=== PATIENT | male | born 1945 | race Caucasian/White ===

== ENCOUNTER 2016-12-25 04:42 | Emergency (ER) | payer OTHER ==
[2016-12-25 04:55] VITALS: BP 162/96; TEMP 97.8; BMI 36.6
[2016-12-25] MEDS ORDERED: LASIX IVP STA (05:00)
[2016-12-25 05:10] LABS: BASOPHILS % (AUTO) 0.5 % (0.0-3.0); EOSINOPHILS # (AUTO) 0.2 K/ul (0.0-0.7); EOSINOPHILS % (AUTO) 2.3 % (0.0-7.0); HEMOGLOBIN 12.8 g/dl (14.0-18.0); IMMATURE GRANULOCYTE % (AUTO) 0.3 % (0.0-5.0); LYMPHOCYTES # (AUTO) 0.8 K/uL (0.60-3.4); LYMPHOCYTES % (AUTO) 11.2 (10.0-50.0); MEAN CORPUSCULAR HEMOGLOBIN 30.2 pg (27.0-31.0); MEAN CORPUSCULAR HGB CONC 33.7 (31.8-35.4); MEAN CORPUSCULAR VOLUME 89.6 fl (80.0-94.0); MONOCYTES # (AUTO) 0.6 K/uL (0.4-2.0); NEUTROPHILS # (AUTO) 5.8 K/ul (2.0-6.9); NEUTROPHILS % (AUTO) 77.7; PLATELET COUNT 178 10^3/uL (140-440); RED BLOOD COUNT 4.24 10^6/ul (4.70-6.10); WHITE BLOOD COUNT 7.48 K/ul (4.2-10.2)
[2016-12-25 05:29] LABS: PROTHROMBIN TIME 19.1 SEC (9.3-11.0)
[2016-12-25 05:30] LABS: ALBUMIN 3.6 g/dL (3.4-5.0); ALBUMIN/GLOBULIN RATIO 0.95; ANION GAP 15.3; BILIRUBIN,TOTAL 0.49 mg/dL (0.00-1.20); BUN/CREATININE RATIO 19.56; CALCIUM 9.8 mg/dL (8.2-10.2); CREATININE 1.38 mg/dL (0.60-1.10); POTASSIUM 4.3 mmol/L (3.5-5.1); TOTAL PROTEIN 7.4 g/dL (5.8-8.1)
[2016-12-25 06:01] LABS: TROPONIN I 0.016 ng/ml (0.0000-0.4000)
--- NOTE | 2016-12-25 06:01 | DI ---
EXAM: Two-view chest HISTORY: Shortness of breath COMPARISON: None. FINDINGS: The heart is enlarged. Atherosclerotic changes are seen involving the aortic arch. There is mild blunting of the left lateral costophrenic angle with likely mild left basilar scarring. IMPRESSION: Mild cardiomegaly. ASVD. Minimal blunting left lateral costophrenic angle with left basilar scarring.. Hiatal hernia.
[2016-12-25 06:06] LABS: CREATINE KINASE MB 5.1 ng/ml (0.0-3.6)
--- NOTE | 2016-12-25 06:07 | ED.PDOC ---
General ED Provider: Dr. JARRETT LINCOLN-ER Chief Complaint: Shortness of Air Stated Complaint: i have chf and its "acting up"--[place] sob--has been eating more salty stuff--denies cp--"i do this from time to time" Time Seen by Physician: 04:45 Mode of Arrival: Walk-In Information Source: Patient, Family Exam Limitations: No limitations Nursing and Triage Documentation Reviewed and Agree: Yes Respiratory Complaint Exam - Shortness of Air Complaint/Exam Onset/Duration: a few hours Symptoms Are: Still present Timing: Constant Initial Severity: Mild Current Severity: Mild Character: Reports: Dyspnea at rest, Dyspnea on exertion Aggravating: Reports: None Alleviating: Reports: None Associated Signs and Symptoms: Reports: Cough, Wheezing, Edema, Labored breathing. Denies: Chest pain with cough, Chest pain, Fever, Chills, Diaphoresis, Nasal congestion, Dizziness, Calf pain, Calf swelling, Rapid breathing, Decreased intake Related History: Reports: Similar episode History of Healthcare-Acquired Pneumonia: No Cardiac Risk Factors: Reports: CHF Home Oxygen Use: No Recent Stress Test: No Recent Echo/LV Function: No Respiratory Distress: Mild Stridor Present: No Tracheal Deviation: No Subcutaneous Emphysema: No Accessory Muscle Use: No Retractions: Not Present Diminished Breath Sounds: No Prolonged Expiratory Phase: No Unable to Speak Full Sentences: No Fatigue: No Leg Swelling: Yes Chuck's Sign Present: No Grunting Respirations: No Kussmaul Respirations: No Differential Diagnoses: CHF, Pulmonary Edema Review of Systems - Review Of Systems Constitutional: Reports: No symptoms Eyes: Reports: No symptoms Ears, Nose, Mouth, Throat: Reports: No symptoms Respiratory: Reports: Cough, Short of air, Wheezing Cardiac: Reports: No symptoms GI: Reports: No symptoms : Reports: No symptoms Musculoskeletal: Reports: No symptoms Skin: Reports: No symptoms Neurological: Reports: No symptoms Endocrine: Reports: No symptoms Hematologic/Lymphatic: Reports: No symptoms All Other Systems: Reviewed and Negative Past Medical History - Past Medical History Previously Healthy: Yes Endocrine: Reports: Unknown Cardiovascular: Reports: Hypertension, CHF Respiratory: Reports: Unknown Hematological: Reports: Unknown Gastrointestinal: Reports: Unknown Genitourinary: Reports: Unknown Neuro/Psych: Reports: Unknown Musculoskeletal: Reports: Unknown Cancer: Reports: Unknown - Surgical History General Surgical History: Reports: Pacemaker - Family History Family History: Reports: Unknown - Social History Smoking Status: Former smoker Hx Substance Use: No Alcohol Screening: None Lives: With family - Immunizations Tetanus Shot up to Date: Yes Physical Exam - Physical Exam Appearance: Well-appearing, No pain distress, Well-nourished Eyes: MARCY, EOMI, Conjunctiva clear ENT: Ears normal, Nose normal, Oropharynx normal Neck: Supple Respiratory: Crackles Cardiovascular: RRR GI/: Soft, Nontender, No masses, Bowel sounds normal, No Organomegaly Musculoskeletal: Normal strength, ROM intact, No edema, No calf tenderness Skin: Warm, Dry, Normal color Neurological: Sensation intact, Motor intact, Reflexes intact, Cranial nerves intact, Alert, Oriented Psychiatric: Affect appropriate, Mood appropriate Interpretation - Radiology Interpretation Radiology Interpretation By: Radiologist Radiology Results: Positive Exam Interpreted: CXR ("cardiomegaly with left minimal blunting") Re-Evaluation - Re-Evaluation Time of Re-Evaluation: 06:15 Status: Improved (no cp or dyspnea "i can lay back now") Vital Signs Stable: Yes Pain Level: o Appearance: NAD Lungs: Clear Skin: Warm and Dry Neuro: Alert and Oriented X3 CV: RRR Critical Care Note - Critical Care Note Total Time (mins): 0 Course - Course Hematology/Chemistry: 12/25/16 05:05 12/25/16 05:05 Orders, Labs, Meds: Lab Review 12/25/16 12/25/16 12/25/16 05:05 05:05 05:05 WBC 7.48 RBC 4.24 L Hgb 12.8 L Hct 38.0 L MCV 89.6 MCH 30.2 MCHC 33.7 RDW Coeff of Roman 12.9 Plt Count 178 Immature Gran % (Auto) 0.3 Neut % (Auto) 77.7 Lymph % (Auto) 11.2 [place] % (Auto) 8.0 Eos % (Auto) 2.3 Baso % (Auto) 0.5 Immature Gran # (Auto) 0.0 Neut # 5.8 Lymph # 0.8 [place] # 0.6 Eos # 0.2 Baso # 0.0 PT 19.1 H INR 1.91 Sodium 142 Potassium 4.3 Chloride 101 Carbon Dioxide 30 Anion Gap 15.3 BUN 27 H Creatinine 1.38 H Estimated GFR (MDRD) 51.00 BUN/Creatinine Ratio 19.56 Glucose 167 H Calcium 9.8 Total Bilirubin 0.49 AST 18 ALT 15 Alkaline Phosphatase 66 Total Creatine Kinase CK-MB (CK-2) CK-MB (CK-2) % Troponin I B-Natriuretic Peptide Total Protein 7.4 Albumin 3.6 Globulin 3.8 Albumin/Globulin Ratio 0.95 12/25/16 12/25/16 05:05 05:05 WBC RBC Hgb Hct MCV MCH MCHC RDW Coeff of Roman Plt Count Immature Gran % (Auto) Neut % (Auto) Lymph % (Auto) [place] % (Auto) Eos % (Auto) Baso % (Auto) Immature Gran # (Auto) Neut # Lymph # [place] # Eos # Baso # PT INR Sodium Potassium Chloride Carbon Dioxide Anion Gap BUN Creatinine Estimated GFR (MDRD) BUN/Creatinine Ratio Glucose Calcium Total Bilirubin AST ALT Alkaline Phosphatase Total Creatine Kinase 207 CK-MB (CK-2) 5.1 H* CK-MB (CK-2) % 2.89108 Troponin I 0.0160 B-Natriuretic Peptide 246 H Total Protein Albumin Globulin Albumin/Globulin Ratio Orders Category Date Time Status EKG-(ED ONLY) Stat CARDIO 12/25/16 04:59 Ordered Cylinder Inspector [ED INSULATION MACHINE OPERATOR APPLIED] .ONCE EMERGENCY 12/25/16 05:00 Active IV [ED IV/MEDIPORT/POWERPORT] .ONCE EMERGENCY 12/25/16 04:59 Active BNP [B-TYPE NATRIURETIC PEPTIDE] Stat LAB 12/25/16 05:05 Completed CBC W/ AUTO DIFF Stat LAB 12/25/16 05:05 Completed COMPREHENSIVE METABOLIC PANEL Stat LAB 12/25/16 05:05 Completed CREATINE KINASE Stat LAB 12/25/16 05:05 Completed PT WITH INR Stat LAB 12/25/16 05:05 Completed TROPONIN I Stat LAB 12/25/16 05:05 Completed 0.9 % Sodium Chloride [Saline Flush] MEDS 12/25/16 04:59 Ordered 1 syr IVF PRN PRN Furosemide [Lasix] MEDS 12/25/16 05:00 Discontinued 80 mg IVP ONCE STA CXR [CHEST, 2 VIEWS PA & LAT] Stat RADS 12/25/16 05:00 Completed Medications Generic Name Dose Route Start Last Admin Trade Name Freq PRN Reason Stop Dose Admin Sodium Chloride 1 syr 12/25/16 04:59 12/25/16 05:25 Saline Flush IVF 1 syr PRN PRN Administration To flush IV Discontinued Medications Generic Name Dose Route Start Last Admin Trade Name Chelle PRN Reason Stop Dose Admin Furosemide 80 mg 12/25/16 05:00 12/25/16 05:25 Lasix IVP 12/25/16 05:01 80 mg ONCE STA Administration Vital Signs: Temp Pulse Resp BP Pulse Ox 12/25/16 04:44 97.8 F 91 H 20 162/96 H 88 L Departure - Departure Time of Disposition: 06:15 Disposition: HOME SELF-CARE Discharge Problem: CHF (congestive heart failure) Qualifiers: Congestive heart failure type: unspecified congestive heart failure type Congestive heart failure chronicity: acute on chronic Qualified Code(s): I50.9 - Heart failure, unspecified Instructions: Heart Failure (ED), Low-Sodium Diet (ED) Condition: Good Pt referred to PMD for follow-up: Yes Additional Instructions: take meds as prescribed--careful with salt intake at [facility] [place] --f/u with pcp upon return Allergies/Adverse Reactions: Allergies guaifenesin [From Robitussin] Adverse Reaction (Verified 12/25/16 04:55) Difficulty Swallowing Home Medications: Ambulatory Orders Aspirin [Aspirin EC] 81 mg PO DAILYWM 12/25/16 Carvedilol [Coreg] 25 mg PO BID 12/25/16 Furosemide [Lasix Tab] 40 mg PO QPM 12/25/16 Furosemide [Lasix Tab] 80 mg PO QAM 12/25/16 Glipizide 5 mg PO BIDAC 12/25/16 Lisinopril [Zestril] 5 mg PO DAILY 12/25/16 Loratadine [Allergy] 10 mg PO DAILY 12/25/16 Metformin HCl [Glucophage] 1,000 mg PO BID BREAKFAST&LUNCH 12/25/16 Simvastatin 40 mg PO DAILY 12/25/16 Warfarin Sodium [Coumadin] 5 mg PO DAILY 12/25/16 Disposition Discussed With: Patient, Family
[2016-12-26 00:01] VITALS: BMI 36.5
== END 2016-12-25 06:25 | disposition home or self-care (01) ==
LOC: ED 04:42
DX: I50.9 Heart failure, unspecified (principal); I10 Essential (primary) hypertension; Z95.0 Presence of cardiac pacemaker; Z79.01 Long term (current) use of anticoagulants; Z79.899 Other long term (current) drug therapy
CPT/HCPCS: 36415; 80053; 82550; 82553; 83880; 84484; 85025; 85610; 93005; 93010; 96374; 99284

== ENCOUNTER 2016-12-25 20:50 | Inpatient (IN) ==
[2016-12-25] MEDS ORDERED: DUONEB NEB STA (21:12)
[2016-12-25] MEDS ORDERED: SOLU-MEDROL 125 MG IVP STA (21:13)
[2016-12-25 21:33] LABS: ABG PCO2 49.4 mmHg (35-45); ABG PH 7.418 (7.35-7.45)
[2016-12-25 21:34] LABS: ABG BASE EXCESS 7 (-2.0-2.0); ABG HCO3 31.9 (22.0-26.0); ABG TCO2 33 (22.0-28.0)
[2016-12-25 21:46] LABS: BASOPHILS % (AUTO) 0.5 % (0.0-3.0); EOSINOPHILS # (AUTO) 0.1 K/ul (0.0-0.7); EOSINOPHILS % (AUTO) 2.3 % (0.0-7.0); HEMATOCRIT 35.3 % (42.0-52.0); HEMOGLOBIN 11.8 g/dl (14.0-18.0); IMMATURE GRANULOCYTE % (AUTO) 0.2 % (0.0-5.0); LYMPHOCYTES % (AUTO) 16.2 (10.0-50.0); MEAN CORPUSCULAR HEMOGLOBIN 29.7 pg (27.0-31.0); MEAN CORPUSCULAR HGB CONC 33.4 (31.8-35.4); MEAN CORPUSCULAR VOLUME 88.9 fl (80.0-94.0); MONOCYTES # (AUTO) 0.7 K/uL (0.4-2.0); MONOCYTES % (AUTO) 10.9 (0-10); NEUTROPHILS # (AUTO) 4.3 K/ul (2.0-6.9); NEUTROPHILS % (AUTO) 69.9; PLATELET COUNT 174 10^3/uL (140-440); RED BLOOD COUNT 3.97 10^6/ul (4.70-6.10); WHITE BLOOD COUNT 6.13 K/ul (4.2-10.2)
--- NOTE | 2016-12-25 21:49 | ED.PDOC ---
General ED Provider: Dr. GINA LYONS Chief Complaint: Shortness of Air Stated Complaint: Patient is a 71 year old male who was seen last night for shortness of breath and possible CHF excercerbation. He was at the [place] when in the last hour he started feeling short of breath again. Returned to the ER. Last night he was given IV lasix 80mg but states he did not urinate much. Time Seen by Physician: 21:00 Mode of Arrival: Walk-In Information Source: Patient Exam Limitations: No limitations Nursing and Triage Documentation Reviewed and Agree: Yes Respiratory Complaint Exam - Shortness of Air Complaint/Exam Onset/Duration: 2 days Symptoms Are: Still present Timing: Constant Initial Severity: Moderate Current Severity: Moderate Character: Reports: Dyspnea at rest Aggravating: Reports: Movement, Recumbent position, Smoke exposure Alleviating: Reports: Bronchodilators, Oxygen Associated Signs and Symptoms: Reports: Cough, Labored breathing. Denies: Chest pain Related History: Reports: Similar episode (was ) History of Healthcare-Acquired Pneumonia: No Pulmonary Embolism Risk Factors: Reports: None Cardiac Risk Factors: Reports: None Pseudomonas Risk Factors: Reports: None Tuberculosis Risk Factors: Reports: None Home Oxygen Use: No Recent Stress Test: No Recent Echo/LV Function: No Respiratory Distress: Moderate Stridor Present: No Tracheal Deviation: No Subcutaneous Emphysema: No Accessory Muscle Use: No Retractions: Not Present Diminished Breath Sounds: Yes Prolonged Expiratory Phase: No Unable to Speak Full Sentences: Yes Fatigue: No Leg Swelling: No Chuck's Sign Present: No Grunting Respirations: No Kussmaul Respirations: No Differential Diagnoses: CHF, Pneumonia, Bronchitis, URI Quality Indicator For Non-Traumatic Chest Pain/Syncope: EKG Performed Related Surgical History: Reports: Pacemaker Review of Systems - Review Of Systems Constitutional: Reports: No symptoms Eyes: Reports: No symptoms Ears, Nose, Mouth, Throat: Reports: No symptoms Respiratory: Reports: Short of air Cardiac: Denies: Chest pain GI: Denies: Nausea : Reports: No symptoms Musculoskeletal: Reports: No symptoms Skin: Reports: No symptoms Neurological: Reports: No symptoms Endocrine: Reports: No symptoms Hematologic/Lymphatic: Reports: No symptoms All Other Systems: Reviewed and Negative Past Medical History - Past Medical History Previously Healthy: Yes Endocrine: Reports: Unknown Cardiovascular: Reports: Hypertension, CHF Respiratory: Reports: Unknown Hematological: Reports: Unknown Gastrointestinal: Reports: Unknown Genitourinary: Reports: Unknown Neuro/Psych: Reports: Unknown Musculoskeletal: Reports: Unknown Cancer: Reports: Unknown - Surgical History General Surgical History: Reports: Pacemaker - Family History Family History: Reports: Unknown - Social History Smoking Status: Former smoker Hx Substance Use: No Alcohol Screening: None - Immunizations Tetanus Shot up to Date: (UNKNOWN) Physical Exam - Physical Exam Appearance: Ill-appearing, Obese Ill-appearing: Mild Eyes: MARCY, EOMI, Conjunctiva clear ENT: Ears normal, Nose normal, Oropharynx normal Neck: Supple Respiratory: Airway patent, Breath sounds clear, Breath sounds equal, Respirations nonlabored Cardiovascular: Pulses normal, Murmur GI/: Soft (obese protuberant. ) Musculoskeletal: Normal strength, ROM intact, No edema, No calf tenderness Skin: Warm, Dry, Normal color Neurological: Sensation intact, Motor intact, Reflexes intact, Cranial nerves intact, Alert, Oriented Psychiatric: Anxious Interpretation - Radiology Interpretation Radiology Interpretation By: ED Physician Radiology Results: No acute changes Exam Interpreted: Portable CXR (cardiomegaly) - EKG Interpretation Time of EKG #2: 23:17 Rhythm: Other (paced 81) Critical Care Note - Critical Care Note Total Time (mins): 35 Course - Course Hematology/Chemistry: 12/25/16 21:40 12/25/16 21:40 Orders, Labs, Meds: Lab Review 12/25/16 12/25/16 12/25/16 21:12 21:40 21:40 WBC 6.13 RBC 3.97 L Hgb 11.8 L Hct 35.3 L MCV 88.9 MCH 29.7 MCHC 33.4 RDW Coeff of Roman 13.1 Plt Count 174 Immature Gran % (Auto) 0.2 Neut % (Auto) 69.9 Lymph % (Auto) 16.2 [place] % (Auto) 10.9 H Eos % (Auto) 2.3 Baso % (Auto) 0.5 Immature Gran # (Auto) 0.0 Neut # 4.3 Lymph # 1.0 [place] # 0.7 Eos # 0.1 Baso # 0.0 PT INR Puncture Site lr O2 Saturation 91.0 L ABG pH 7.418 ABG pCO2 49.4 H ABG pO2 62.0 L ABG HCO3 31.9 H ABG Total CO2 33 H ABG Base Excess 7 H Spenser Test + FiO2 % 21.0 Sodium 142 Potassium 4.0 Chloride 102 Carbon Dioxide 27 Anion Gap 17.0 BUN 32 H Creatinine 1.57 H Estimated GFR (MDRD) 44.00 BUN/Creatinine Ratio 20.38 Glucose 118 H Calcium 10.0 Total Bilirubin 0.47 AST 18 ALT 15 Alkaline Phosphatase 65 B-Natriuretic Peptide Total Protein 7.3 Albumin 3.7 Globulin 3.6 Albumin/Globulin Ratio 1.03 12/25/16 12/25/16 21:40 21:40 WBC RBC Hgb Hct MCV MCH MCHC RDW Coeff of Roman Plt Count Immature Gran % (Auto) Neut % (Auto) Lymph % (Auto) [place] % (Auto) Eos % (Auto) Baso % (Auto) Immature Gran # (Auto) Neut # Lymph # [place] # Eos # Baso # PT 18.7 H INR 1.86 Puncture Site O2 Saturation ABG pH ABG pCO2 ABG pO2 ABG HCO3 ABG Total CO2 ABG Base Excess Spenser Test FiO2 % Sodium Potassium Chloride Carbon Dioxide Anion Gap BUN Creatinine Estimated GFR (MDRD) BUN/Creatinine Ratio Glucose Calcium Total Bilirubin AST ALT Alkaline Phosphatase B-Natriuretic Peptide 201 H Total Protein Albumin Globulin Albumin/Globulin Ratio Orders Category Date Time Status ADMIT PATIENT INPATIENT .TO [facility] (MONITORED BED) ADMISSION 12/25/16 22: 43 Active ABG DRAW REQUEST Stat CARDIO 12/25/16 21:12 Ordered ECHOCARDIOGRAM 2D-M MODE Routine CARDIO 12/27/16 09:00 Ordered EKG-(IP & OP ONLY) Routine CARDIO 12/25/16 22:50 Ordered NEBULIZER TREATMENT Routine CARDIO 12/25/16 22:49 Ordered NEBULIZER TREATMENT Stat CARDIO 12/25/16 21:12 Ordered OXYGEN Routine CARDIO 12/25/16 22:43 Ordered ACTIVITY .Up ad Patsy CARE 12/25/16 22:49 Active INTAKE & OUTPUT Q8HR CARE 12/25/16 22:43 Active TELEMETRY MONITORING TELE CARE 12/25/16 22:44 Active VITAL SIGNS Q4HR CARE 12/25/16 22:44 Active 2 GRAM SODIUM DIET DIETARY 12/25/16 Breakfast Ordered ED IV/MEDIPORT/POWERPORT .ONCE EMERGENCY 12/25/16 21:13 Active ABG Stat LAB 12/25/16 21:12 Completed BASIC METABOLIC PANEL DAILY@0600 LAB 12/26/16 06:00 Ordered BASIC METABOLIC PANEL DAILY@0600 LAB 12/27/16 06:00 Ordered BASIC METABOLIC PANEL DAILY@06 LAB 12/28/16 06:00 Ordered BASIC METABOLIC PANEL DAILY@06 LAB 12/29/16 06:00 Ordered BASIC METABOLIC PANEL DAILY@06 LAB 12/30/16 06:00 Ordered BASIC METABOLIC PANEL DAILY@06 LAB 12/31/16 06:00 Ordered BASIC METABOLIC PANEL DAILY@06 LAB 01/01/17 06:00 Ordered BASIC METABOLIC PANEL DAILY@06 LAB 01/02/17 06:00 Ordered BASIC METABOLIC PANEL DAILY@06 LAB 01/03/17 06:00 Ordered BASIC METABOLIC PANEL DAILY@06 LAB 01/04/17 06:00 Ordered BASIC METABOLIC PANEL DAILY@06 LAB 01/05/17 06:00 Ordered BASIC METABOLIC PANEL DAILY@06 LAB 01/06/17 06:00 Ordered BASIC METABOLIC PANEL DAILY@06 LAB 01/07/17 06:00 Ordered BASIC METABOLIC PANEL DAILY@06 LAB 01/08/17 06:00 Ordered BASIC METABOLIC PANEL DAILY@06 LAB 01/09/17 06:00 Ordered BASIC METABOLIC PANEL DAILY@06 LAB 01/10/17 06:00 Ordered BASIC METABOLIC PANEL DAILY@06 LAB 01/11/17 06:00 Ordered BASIC METABOLIC PANEL DAILY@06 LAB 01/12/17 06:00 Ordered BASIC METABOLIC PANEL DAILY@06 LAB 01/13/17 06:00 Ordered BASIC METABOLIC PANEL DAILY@06 LAB 01/14/17 06:00 Ordered BNP [B-TYPE NATRIURETIC PEPTIDE] Stat LAB 12/25/16 21:40 Completed CBC W/ AUTO DIFF DAILY@06 LAB 12/26/16 06:00 Ordered CBC W/ AUTO DIFF DAILY@06 LAB 12/27/16 06:00 Ordered CBC W/ AUTO DIFF DAILY@06 LAB 12/28/16 06:00 Ordered CBC W/ AUTO DIFF DAILY@06 LAB 12/29/16 06:00 Ordered CBC W/ AUTO DIFF DAILY@06 LAB 12/30/16 06:00 Ordered CBC W/ AUTO DIFF DAILY@06 LAB 12/31/16 06:00 Ordered CBC W/ AUTO DIFF DAILY@0600 LAB 01/01/17 06:00 Ordered CBC W/ AUTO DIFF DAILY@06 LAB 01/02/17 06:00 Ordered CBC W/ AUTO DIFF DAILY@06 LAB 01/03/17 06:00 Ordered CBC W/ AUTO DIFF DAILY@0600 LAB 01/04/17 06:00 Ordered CBC W/ AUTO DIFF DAILY@0600 LAB 01/05/17 06:00 Ordered CBC W/ AUTO DIFF DAILY@0600 LAB 01/06/17 06:00 Ordered CBC W/ AUTO DIFF DAILY@0600 LAB 01/07/17 06:00 Ordered CBC W/ AUTO DIFF DAILY@0600 LAB 01/08/17 06:00 Ordered CBC W/ AUTO DIFF DAILY@0600 LAB 01/09/17 06:00 Ordered CBC W/ AUTO DIFF DAILY@0600 LAB 01/10/17 06:00 Ordered CBC W/ AUTO DIFF DAILY@0600 LAB 01/11/17 06:00 Ordered CBC W/ AUTO DIFF DAILY@0600 LAB 01/12/17 06:00 Ordered CBC W/ AUTO DIFF DAILY@0600 LAB 01/13/17 06:00 Ordered CBC W/ AUTO DIFF DAILY@0600 LAB 01/14/17 06:00 Ordered CBC W/ AUTO DIFF Stat LAB 12/25/16 21:40 Completed COMPREHENSIVE METABOLIC PANEL Stat LAB 12/25/16 21:40 Completed PT WITH INR Stat LAB 12/25/16 21:40 Completed 0.9 % Sodium Chloride [Saline Flush] MEDS 12/25/16 21:13 Ordered 1 syr IVF PRN PRN Ipratropium/Albuterol Neb [Duoneb] MEDS 12/25/16 21:12 Discontinued 1 vial NEB ONCE STA Ipratropium/Albuterol Neb [Duoneb] MEDS 12/26/16 06:00 Ordered 1 vial NEB RTQID Methylprednisolone Sod Succ/Pf [Solu-Medrol 125 mg] MEDS 12/25/16 21:13 Discontinued 125 mg IVP ONCE STA Methylprednisolone Sod Succ/Pf [Solu-Medrol 125 mg] MEDS 12/26/16 05:00 Ordered 125 mg IVP Q8HR RESUSCITATION STATUS Routine OTHERS 12/25/16 22:43 Ordered CHEST, 1V AP ONLY Stat RADS 12/25/16 21:35 Ordered Medications Generic Name Dose Route Start Last Admin Trade Name Freq PRN Reason Stop Dose Admin Albuterol/Ipratropium 1 vial 12/26/16 06:00 Duoneb NEB RTQID TEA Aspirin 81 mg 12/26/16 08:00 Aspirin Ec PO DAILYWM TEA Furosemide 40 mg 12/26/16 09:00 Lasix IVP TID TEA Glipizide 5 mg 12/26/16 06:30 Glucotrol PO BIDAC TEA Lisinopril 5 mg 12/26/16 09:00 Zestril PO DAILY TEA Loratadine 10 mg 12/26/16 09:00 Claritin PO DAILY TEA Methylprednisolone Sodium Succinate 125 mg 12/26/16 05:00 Solu-Medrol 125 Mg IVP Q8HR TEA Multivitamins tab 12/26/16 09:00 Multivitamin Tablet PO DAILY TEA Non-Formulary Medication 25 mg 12/26/16 09:00 Carvedilol [Coreg] PO BID TEA Non-Formulary Medication 1,000 mg 12/26/16 08:00 Metformin Hcl [Glucophage] PO BID BREAKFAST&LUNCH TEA Non-Formulary Medication 1 each 12/26/16 09:00 [place]-3/Dha/Epa/Fish Oil [[place] 3 500 Softgel] PO BID [facility] Simvastatin 40 mg 12/26/16 21:00 Zocor PO BEDTIME TEA Sodium Chloride 1 syr 12/25/16 21:13 12/25/16 23:05 Saline Flush IVF 1 syr PRN PRN Administration To flush IV Warfarin Sodium 5 mg 12/26/16 09:00 Coumadin PO DAILY TEA Discontinued Medications Generic Name Dose Route Start Last Admin Trade Name Freq PRN Reason Stop Dose Admin Albuterol/Ipratropium 1 vial 12/25/16 21:12 12/25/16 21:30 Duoneb NEB 12/25/16 21:13 1 vial ONCE STA Administration Furosemide 40 mg 12/26/16 09:00 Lasix IVP 12/26/16 09:00 BID TEA Furosemide 40 mg 12/25/16 22:54 12/25/16 23:03 Lasix IVP 12/25/16 22:55 40 mg ONCE STA Administration Methylprednisolone Sodium Succinate 125 mg 12/25/16 21:13 12/25/16 21:47 Solu-Medrol 125 Mg IVP 12/25/16 21:14 125 mg ONCE STA Administration Vital Signs: Temp Pulse Resp BP Pulse Ox 12/25/16 20:53 97.7 F 94 H 24 107/71 93 L Departure - Departure Time of Disposition: 22:55 Disposition: ADMITTED INPATIENT Discharge Problem: Bronchitis CHF (congestive heart failure) Qualifiers: Congestive heart failure type: unspecified congestive heart failure type Congestive heart failure chronicity: acute on chronic Qualified Code(s): I50.9 - Heart failure, unspecified Condition: Fair Pt referred to PMD for follow-up: No Allergies/Adverse Reactions: Allergies guaifenesin [From Robitussin] Adverse Reaction (Verified 12/25/16 04:55) Difficulty Swallowing BEE STING Adverse Reaction (Uncoded 12/25/16 21:03) Swelling Home Medications: Ambulatory Orders Aspirin [Aspirin EC] 81 mg PO DAILYWM 12/25/16 Carvedilol [Coreg] 25 mg PO BID 12/25/16 Furosemide [Lasix Tab] 40 mg PO QPM 12/25/16 Furosemide [Lasix Tab] 80 mg PO QAM 12/25/16 Glipizide 5 mg PO BIDAC 12/25/16 Lisinopril [Zestril] 5 mg PO DAILY 12/25/16 Loratadine [Allergy] 10 mg PO DAILY 12/25/16 Metformin HCl [Glucophage] 1,000 mg PO BID BREAKFAST&LUNCH 12/25/16 Multivitamin [One Daily Multivitamin] 1 each PO DAILY 12/25/16 [place]-3/Dha/Epa/Fish Oil [[place] 3 500 Softgel] 1 each PO BID 12/25/16 Simvastatin 40 mg PO BEDTIME 12/25/16 Warfarin Sodium [Coumadin] 5 mg PO DAILY 12/25/16 Disposition Discussed With: Patient, Family
[2016-12-25 22:06] LABS: ALBUMIN 3.7 g/dL (3.4-5.0); ALBUMIN/GLOBULIN RATIO 1.03; BILIRUBIN,TOTAL 0.47 mg/dL (0.00-1.20); BUN/CREATININE RATIO 20.38; CREATININE 1.57 mg/dL (0.60-1.10); TOTAL PROTEIN 7.3 g/dL (5.8-8.1)
[2016-12-25 22:07] LABS: PROTHROMBIN TIME 18.7 SEC (9.3-11.0)
[2016-12-25] MEDS ORDERED: LASIX IVP STA (22:54)
[2016-12-26 00:01] VITALS: BMI 36.5
[2016-12-26 04:39] LABS: BASOPHILS % (AUTO) 0.2 % (0.0-3.0); EOSINOPHILS % (AUTO) 0.2 % (0.0-7.0); HEMATOCRIT 37.6 % (42.0-52.0); HEMOGLOBIN 12.4 g/dl (14.0-18.0); IMMATURE GRANULOCYTE % (AUTO) 0.3 % (0.0-5.0); LYMPHOCYTES # (AUTO) 0.5 K/uL (0.60-3.4); MEAN CORPUSCULAR HEMOGLOBIN 29.7 pg (27.0-31.0); MONOCYTES # (AUTO) 0.1 K/uL (0.4-2.0); MONOCYTES % (AUTO) 0.8 (0-10); NEUTROPHILS # (AUTO) 5.6 K/ul (2.0-6.9); NEUTROPHILS % (AUTO) 90.5; PLATELET COUNT 165 10^3/uL (140-440); RED BLOOD COUNT 4.18 10^6/ul (4.70-6.10); WHITE BLOOD COUNT 6.22 K/ul (4.2-10.2)
[2016-12-26 05:01] LABS: ANION GAP 14.6; BUN/CREATININE RATIO 22.5; CALCIUM 10.1 mg/dL (8.2-10.2); CREATININE 1.6 mg/dL (0.60-1.10); POTASSIUM 4.6 mmol/L (3.5-5.1)
[2016-12-26] MEDS: DUONEB NEB SCH ×3 (05:30→14:09)
[2016-12-26] MEDS: SOLU-MEDROL 125 MG IVP SCH ×2 (05:43→14:13)
[2016-12-26] MEDS ORDERED: GLUCOTROL PO SCH (06:30)
--- NOTE | 2016-12-26 06:41 | DI ---
EXAM: Chest one view HISTORY: Shortness of breath COMPARISON: 12/25/2016 TECHNIQUE: Single view of the chest was performed FINDINGS: Left-sided cardiac pacer.The lungs are clear. There is no pleural effusion or pneumothora x. The heart is mildly enlarged in size. The mediastinal contour is normal, noting atherosclerosis. There are no acute abnormalities of the bones. Previously seen hiatal hernia difficult to clearly d elineate on current examination. IMPRESSION: Cardiomegaly. No acute cardiopulmonary process.
[2016-12-26] MEDS ORDERED: COREG PO SCH (08:00)
[2016-12-26] MEDS ORDERED: ASPIRIN EC PO SCH (08:00)
[2016-12-26] MEDS ORDERED: NON-FORMULARY MEDICATION (Metformin Hcl [Glucophage] 1,000 MG) PO SCH ×22 (08:00)
[2016-12-26] MEDS ORDERED: MULTIVITAMIN TABLET PO SCH (09:00)
[2016-12-26] MEDS ORDERED: ZESTRIL PO SCH (09:00)
[2016-12-26] MEDS ORDERED: LASIX IVP SCH ×2 (09:00)
[2016-12-26] MEDS ORDERED: OMEGA PO SCH (09:00)
[2016-12-26] MEDS ORDERED: DHA PO SCH (09:00)
[2016-12-26] MEDS ORDERED: CLARITIN PO SCH (09:00)
[2016-12-26] MEDS ORDERED: OMEGA-3 FISH OIL PO SCH (09:00)
[2016-12-26] MEDS ORDERED: NON-FORMULARY MEDICATION (Carvedilol [Coreg] 25 MG) PO SCH ×22 (09:00)
[2016-12-26] MEDS ORDERED: FISH OIL PO SCH (09:00)
[2016-12-26] MEDS ORDERED: EPA PO SCH (09:00)
[2016-12-26] MEDS: GLUCOPHAGE PO SCH ×2 (09:05→12:03)
[2016-12-26 10:51] VITALS: BP 125/78; TEMP 98.1
[2016-12-26] MEDS ORDERED: HUMULIN R SUBCUT STA (13:47)
[2016-12-26] MEDS ORDERED: COUMADIN PO SCH (17:00)
[2016-12-26] MEDS ORDERED: ZOCOR PO SCH (21:00)
--- NOTE | 2016-12-31 09:37 | HP ---
DATE OF SERVICE: 12/26/16 CHIEF COMPLAINT: Shortness of breath HISTORY OF PRESENT ILLNESS: This is a 71 year old male who is visiting the [place] area for the [facility]. The patient was having worsening shortness of breath and came and saw the ER doctor, Dr. Mendez. Dr. Mendez gave Lasix and the patient was feeling better and went back to the [facility] but over the day he was getting more short of breath, worse short of breath so the patient decided to come back to the emergency room. Dr. Bonds. ABG were done which showed the pH 7.418, pCO2 49.4, pO2 62. Chest x-ray was done which showed cardiomegaly and no acute cardiopulmonary process. In review of failure outpatient therapy for the acute on chronic heart failure and COPD exacerbation the patient was admitted to the hospital for IV steroids, breathing treatment and diuretics. REVIEW OF SYSTEMS: CONSTITUTIONAL: No fever, no chills. Weakness. Tiredness. HEENT: Normal. ENDOCRINE: No weight gain; no weight loss. CVS: No chest pain. No PND, no orthopnea. Shortness of breath. No PND, no orthopnea. RESPIRATORY: Cough, Congestion. No hemoptysis. GI: No nausea, no vomiting. No abdominal pain. No melena. : No hematuria. No polyuria. MUSCULOSKELETAL: No joint swelling. PSYCHIATRIC: Not anxious. No depression. No suicidal thoughts. No homicidal thoughts. SKIN: Intact, no open lesions. PAST MEDICAL HISTORY: Coronary artery disease Congestive heart failure Hypertension Permanent pacemaker Osteoarthritis DJD spine Diabetes Atrial fibrillation PAST SURGICAL HISTORY: Permanent pacemaker Cataract surgery PERSONAL HISTORY: The patient does not smoke or drink alcohol. Family history is significant for the high blood pressure. MEDICATIONS: Simvastatin Glipizide Lasix 40mg and 80mg Zestril Aspirin Coumadin Coreg Loratadine Multivitamin Metformin Lutz-3 ALLERGIES: Guaifenesin Bee sting PHYSICAL EXAMINATION: V/S: Blood pressure 107/74, respiratory rate 24, heart rate 94, temperature 97.7 with saturation 93 room air. HEENT: Atraumatic, normocephalic. No scleral icterus. Pallor positive. Mucosa dry. NECK: Supple. No JVD, no bruit. No lymphadenopathy. No thyromegaly. HEART: S1, S2 normal. No murmur. No cyanosis or clubbing. No ascites. LUNGS: Decreased and basilar crackles. No rales or rhonchi. ABDOMEN: Soft, nontender. Bowel sounds are active. No CVA tenderness. No rigidity or guarding. EXTREMITIES: No cyanosis, clubbing. 1+ edema. MUSCULOSKELETAL: Normal joints, no swelling. NEUROLOGIC: The patient is awake and alert and oriented times three. SKIN: Intact; no open lesions. LYMPHATIC: No lymph nodes palpable. LABS: WBC 6.22, hgb 12.4, hct 37.6, plt count 165, ABG pH 7.41, pCO2 49.4, pO2 62, sodium 142, potassium 4.0, chloride 102, bicarb 27, BUN 32, creatinine 1.57. BNP 112 ASSESSMENT: 1. Acute on chronic heart failure 2. COPD exacerbation secondary to the bronchitis from the dust exposure 3. Acute on chronic renal failure 4. Atrial fibrillation on enforcement safety officer anticoagulation 5. Anemia 6. Diabetes 7. Osteoarthritis 8. DJD spine PLAN: 1. Admit patient to the regular floor 2. CBC and CMP today and daily 3. Cardiac enzymes and troponin 4. Echocardiogram 5. DUO NEBS 6. Accu-checks with coverage TIME SPENT: MORE THAN 70 minutes [facility]
--- NOTE | 2016-12-31 10:36 | PN ---
DATE OF SERVICE: 12/26/16 SUBJECTIVE: The patient says that he is feeling better and want to go home as he is from [place], [place] and he wants to drive back there. The patient sees a Resource Engineer, Personal Companion and primary care physician. He says that he wants to go and get checked by the primary care doctor. REVIEW OF SYSTEMS: CONSTITUTIONAL: No fever, no chills. HEENT: Normal. ENDOCRINE: No weight gain, no weight loss. CVS: No angina symptoms. No CHF symptoms. No palpitations. No atypical chest pain for CAD. No shortness of breath. No PND, no orthopnea. RESPIRATORY: No cough, no hemoptysis. GI: No nausea, no vomiting. No abdominal pain. : No hematuria. No polyuria. MUSCULOSKELETAL:. No joint swelling. PSYCHIATRIC: Not anxious. No depression. No suicidal thoughts. No homicidal thoughts. SKIN: Intact. No rash. PHYSICAL EXAMINATION: V/S: Blood pressure 125/78, respiratory rate 20, heart rate 79, temperature 98.1 and saturation 93 on room air HEENT: Normocephalic, atraumatic. Mucosa dry. Pallor positive. NECK: Supple. No JVD, no carotid bruit. No lymphadenopathy. LUNGS: Decreased and clear to auscultation. No rales or rhonchi. HEART: S1, S2 normal. No S3. No murmur, gallop or regurgitation. ABDOMEN: Soft, nontender. Bowel sounds active. No rigidity. No rebound or guarding. No CVA tenderness. EXTREMITIES: No clubbing, cyanosis or pedal edema. Some varicose veins present. MUSCULOSKELETAL: No joint swelling. NEUROLOGIC: Awake, alert, oriented times three. No focal deficit. LYMPHATIC: No lymph nodes palpable. SKIN: Intact. LABS: WBC 6.22, hgb 12.4, hct 37.6, plt count 165, Sodium 141, potassium 4.6, chloride 102, bicarb 28, BUN 36, creatinine 1.60 and glucose 245. ASSESSMENT: 1. Acute on chronic heart failure 2. COPD exacerbation secondary the bronchitis 3. Chronic kidney disease 4. Atrial fibrillation on Coumadin 5. Permanent pacemaker 6. Diabetes 7. Osteoarthritis 8. DJD spine PLAN: 1. Discharge the patient home 2. Lifestyle modification 3. Prednisone 10mg twice a day 4. Keep monitoring the blood sugars 5. Keep followup with PMD as soon as possible TIME SPENT: More than 35 minutes MTDD
--- NOTE | 2017-02-10 14:14 | DS ---
DATE OF SERVICE: 12/26/16 FINAL DIAGNOSIS: 1. ACUTE ON CHRONIC HEART FAILURE 2. SHORTNESS OF BREATH SECONDARY TO HEART FAILURE 3. COPD EXACERBATION 4. HISTORY OF HYPERTENSION 5. CHF 6. PERMANENT PACEMAKER 7. CATARACT SURGERY 8. OSTEOARTHRITIS 9. DEPENDENT EDEMA 10. ATRIAL FIBRILLATION 11. DIABETES 12. LONG TERM ANTICOAGULATION DISCHARGE INSTRUCTIONS: Followup appointment: Followup with family physician as soon as possible. Monitor blood sugars. Avoid respiratory irritants such as smoke and strong fumes. Return to ER if difficulty breathing. Notify M.D. of fever, increased blood sugars, cough and congestion. MEDICATIONS AT DISCHARGE: Continue Lasix as given Aspirin Coreg Zestril Glipizide Loratidine Metformin [place] 3 Prednisone Simvastatin Coumadin NEW PRESCRIPTIONS: Prednisone 10 mg p.o. b.i.d. with meal DIET INSTRUCTIONS: Resume diabetic diet as at home. ACTIVITY: Gradually resume usual activities. SMOKING: Nonsmoker DISEASE SPECIFIC EDUCATION: CHF Fluid control Salt intake HOSPITAL COURSE: This 71-year-old gentleman [facility] and started having shortness of breath, cough and congestion. He came to the emergency room and was seen by Dr. Mendez. The patient's BNP was 246. He was given an extra dose of Lasix and told the patient to take the extra Lasix and was sent back to the [facility]. He went back there and because of the dust and allergens started having worsening shortness of breath and came back to the emergency room. He was seen by Dr. Bonds. ABGs were done and showed pH 7.418, pc02 49.4, p02 62. Chest x-ray done showed pulmonary congestion. At that time, the patient had cardiomegaly and congestion, Dr. Bonds gave a dose of Lasix and admitted the patient to the hospital with COPD exacerbation, acute on chronic heart failure with IV steroids and breathing treatment and worsening leg edema. By the next day, the patient was feeling a lot better and the [place] was ready [place] and family assured that they will be taking him back to his doctor. Meanwhile, the patient was up and about, was able to go to the bathroom by himself. Leg edema peripherally disappeared. The patient promised to take an extra dose of Lasix and he thinks that exacerbation may be from exposure to bad weather and dust. I explained to the patient all his information can be transferred to his PMD so it will be a continuation of care. In case of decompensation, advised the patient to go to nearest emergency room. The patient was reluctant to stay in the hospital as the patient has to leave town. TIME SPENT: MORE THAN 60 MINUTES MTDD
== END 2016-12-26 14:40 | disposition home or self-care (01) | DRG 202 ==
LOC: ED 20:50 → MEDSURG A 22:49
PROVIDERS: ADMIT Emergency Medicine; ATTEND Emergency Medicine
DX: J20.9 Acute bronchitis, unspecified (principal); J44.1 Chronic obstructive pulmonary disease with (acute) exacerbation; I50.9 Heart failure, unspecified; I51.7 Cardiomegaly; R06.02 Shortness of breath; R60.0 Localized edema; I48.91 Unspecified atrial fibrillation; I10 Essential (primary) hypertension; I12.9 Hypertensive chronic kidney disease with stage 1 through stage 4 chronic kidney disease, or unspecified chronic kidney disease; E11.22 Type 2 diabetes mellitus with diabetic chronic kidney disease; N18.9 Chronic kidney disease, unspecified; J30.89 Other allergic rhinitis; M47.9 Spondylosis, unspecified; M19.90 Unspecified osteoarthritis, unspecified site; Z95.0 Presence of cardiac pacemaker; Z79.01 Long term (current) use of anticoagulants; Z79.899 Other long term (current) drug therapy
CPT/HCPCS: 36415; 80048; 80053; 82550; 82553; 82803; 82962; 83880; 84484; 85025; 85610; 93005; 93010; 94640; 96374; 96375; 99284